=== PATIENT | female | born 1960 ===

== ENCOUNTER 2022-08-30 12:21 | Outpatient (REF) | payer MEDICARE, OTHER, SELFPAY | END 2022-08-30 12:22 | disposition home or self-care (01) | LOC: HO.HOSX 12:21 | PROVIDERS: PCP Physician Assistant Medical; Visit Provider Orthopaedic Surgery | DX: M25.552 Pain in left hip (principal); Z79.899 Other long term (current) drug therapy | CPT/HCPCS: 73502; 99212 ==